=== PATIENT | female | born 1955 | race Caucasian/White ===

== ENCOUNTER → 2021-11-20 | Outpatient (CLI) | payer MEDICARE, OTHER | LOC: MC.RAD 09:44 | DX: N63.32 Unspecified lump in axillary tail of the left breast (principal); Z85.3 Personal history of malignant neoplasm of breast; Z90.12 Acquired absence of left breast and nipple ==

== ENCOUNTER 2021-11-30 10:12 | Emergency (ER) | payer MEDICARE, OTHER ==
[~2021-11-30] VITALS: Ht 172.7 cm; Wt 62.7 kg
[2021-11-30 10:23] VITALS: TEMP 98.5
[2021-11-30] MEDS ORDERED: FLEXERIL 1010 MG/TAB PO (10:28)
[2021-11-30] MEDS ORDERED: MOBIC 7.5MG7.5 MG (10:28)
[2021-11-30 11:19] VITALS: BP 138/93; PULSE 87
== END 2021-11-30 11:20 | disposition home or self-care (01) ==
LOC: COL.ER 10:12
DX: S29.011A Strain of muscle and tendon of front wall of thorax, initial encounter (principal); Z28.310 Unvaccinated for COVID-19; W19.XXXA Unspecified fall, initial encounter; Y93.K1 Activity, walking an animal
CPT/HCPCS: J2360